=== PATIENT | female | born 1970 | race African-American/Black ===

== ENCOUNTER 2017-02-05 18:28 | Emergency (ER) | payer OTHER ==
[~2017-02-05] VITALS: Ht 165.1 cm; Wt 122.5 kg
[2017-02-05] MEDS ORDERED: PROPRANOLOL 1010 MG PO (18:30)
[2017-02-05] MEDS ORDERED: HYDROCODONE-AP1 EAC6 PO (20:22)
[2017-02-05] MEDS ORDERED: NAPROSYN500 MG PO (20:22)
[2017-02-05 20:34] VITALS: BP 151/82
== END 2017-02-05 20:35 | disposition home or self-care (01) ==
LOC: ER 18:28
DX: M25.461 Effusion, right knee (principal)

== ENCOUNTER 2018-08-19 14:02 | Emergency (ER) | payer OTHER ==
[~2018-08-19] VITALS: Ht 165.1 cm; Wt 121.6 kg
--- NOTE | ~2018-08-19 | EKG ---
[place] [address] [facility] [place] [address] ELECTROCARDIOGRAM REPORT Name: ITZEL GALLEGOALINA Tere [facility]: [id number] Admission: 08/19/18 Attend Phys: Discharge: Date of : 68 Report #: [id number] THIS REPORT FOR: //name// [facility] ED Test Date: 2018-08-19 Test Time: 14:08:39 Pat Name: ALINA GALLEGO Department: Room: Gender: F Master Printer: : 1970 Requested By: Juan Dougherty Order Number: [id number] MD: Patric Mckinnon Measurements Intervals [place] Rate: 81 P: 42 CT: 162 QRS: 13 QRSD: 86 T: 41 QT: 374 QTc: 434 Interpretive Statements Sinus rhythm No significant abnormality Compared to ECG 06/26/2005 14:09:29 No significant change was found Electronically Signed On 08-19-2018 16:41:14 CDT by Patric Mckinnon [email or web address] <ELECTRONICALLY SIGNED> By: Patric Mckinnon MD, [facility] 08/19/18 [id number] [id number] Patric Mckinnon MD, FACC /EPI
[~2018-08-19 14:02] MED LIST: HYDROCODONE-AP1 EAC6 PO; NAPROSYN500 MG PO; PROPRANOLOL 1010 MG PO
[2018-08-19 15:23] LABS: ABSOLUTE NEUTROPHILS 5.9 thou/uL (1.4-8.2); BASOPHILS 0.4 % (0.0-2.0); EOSINOPHILS 1.5 % (0.0-3.0); HEMATOCRIT 38.3 % (37.0-47.0); HEMOGLOBIN 13.1 gm/dL (12.0-15.0); MCH 27.6 pg (26.0-34.0); MCHC 34.2 g/dL (28.0-37.0); MCV 80.9 fL (80.0-100.0); MONOCYTES 8.5 % (1.0-8.0); PLATELET COUNT 343 thou/uL (150-400); POLYS 53.6 % (36.0-66.0); RBC 4.74 mil/uL (4.20-5.00); RDW 14.6 % (10.5-14.5)
[2018-08-19 15:32] LABS: ANION GAP 8 mmol/L (7-16); BUN 12 mg/dL (7-18); CALCIUM 9.4 mg/dL (8.5-10.1); CHLORIDE 102 mmol/L (98-107); CO2 27 mmol/L (21-32); GLUCOSE 104 mg/dL (74-106); POTASSIUM 3.6 mmol/L (3.5-5.1); SODIUM 137 mmol/L (136-145)
[2018-08-19 15:40] LABS: ALBUMIN 3.4 g/dL (3.4-5.0); SGOT 10 U/L (15-37); SGPT 14 U/L (30-65); TOTAL BILIRUBIN 0.2 mg/dL (<0.1-1.0); TOTAL PROTEIN 8.8 g/dL (6.4-8.2); TROPONIN-I <0.06 ng/mL (<0.06)
[2018-08-19] MEDS ORDERED: PEPCID20 MG PO (16:06)
[2018-08-19] MEDS ORDERED: NAPROSYN500 MG PO (16:06)
[2018-08-19 16:44] VITALS: BP 149/89
== END 2018-08-19 16:49 | disposition home or self-care (01) ==
LOC: ER 14:02
PROVIDERS: Emergency Medicine
DX: R07.9 Chest pain, unspecified (principal); I10 Essential (primary) hypertension; J45.909 Unspecified asthma, uncomplicated

== ENCOUNTER 2019-12-16 10:50 | Emergency (ER) | payer OTHER ==
[~2019-12-16] VITALS: Ht 165.1 cm; Wt 111.1 kg
--- NOTE | ~2019-12-16 | EKG ---
[facility] [place] [address] ELECTROCARDIOGRAM REPORT Name: ALINA KINSEY Tere Room #: REG [facility]#: [id number] Admission: 12/16/19 Attend Phys: Discharge: Date of : 68 Report #: [id number] THIS REPORT FOR: cc: Charis Morelos Diane C. DO Epiphany, Epiphany MD ~ THIS REPORT FOR: //name// [facility] ED Test Date: 2019-12-16 Test Time: 12:21:40 Pat Name: ALINA GALLEGO Department: Room: Gender: F Magazine Designer: JENNIFER : 1970 Requested By: Chip Frances Order Number: [id number] MD: Measurements Intervals [place] Rate: 81 P: 57 PA: 168 QRS: 29 QRSD: 80 T: 29 QT: 385 QTc: 447 Interpretive Statements Sinus rhythm Probable left atrial enlargement Low voltage, precordial leads Compared to ECG 08/19/2018 14:08:39 Low QRS voltage now present [email or web address] By: 1221 1221 Epiphany MD Nevin /EPI
[~2019-12-16 10:50] MED LIST changes: +PEPCID20 MG PO
[2019-12-16 12:13] LABS: ANION GAP 7 mmol/L (7-16); BUN 16 mg/dL (7-18); CALCIUM 8.8 mg/dL (8.5-10.1); CHLORIDE 104 mmol/L (98-107); CO2 29 mmol/L (21-32); CREATININE 0.8 mg/dL (0.6-1.0); GLUCOSE 100 mg/dL (74-106); POTASSIUM 3.6 mmol/L (3.5-5.1); SODIUM 140 mmol/L (136-145)
[2019-12-16 12:22] LABS: ABSOLUTE NEUTROPHILS 3.5 thou/uL (1.4-8.2); BASOPHILS 0.8 % (0.0-2.0); EOSINOPHILS 1.4 % (0.0-3.0); HEMATOCRIT 37.3 % (37.0-47.0); HEMOGLOBIN 12.2 gm/dL (12.0-15.0); LYMPHOCYTES 44.4 % (24.0-44.0); MCH 27.6 pg (26.0-34.0); MCHC 32.7 g/dL (28.0-37.0); MCV 84.3 fL (80.0-100.0); MONOCYTES 7.1 % (1.0-8.0); PLATELET COUNT 330 thou/uL (150-400); POLYS 46.3 % (36.0-66.0); RBC 4.42 mil/uL (4.20-5.00); RDW 14.7 % (10.5-14.5); WBC 7.5 thou/uL (4.0-11.0)
[2019-12-16 12:23] LABS: ALBUMIN 3.9 g/dL (3.4-5.0); LIPASE 91 U/L (73-393); SGOT 13 U/L (15-37); SGPT 18 U/L (30-65); TOTAL BILIRUBIN 0.3 mg/dL (<0.1-1.0); TROPONIN-I <0.06 ng/mL (<0.06)
[2019-12-16 12:23] LABS: URINE BILIRUBIN NEGATIVE (Negative); URINE BLOOD 1+ (Negative); URINE CLARITY CLEAR; URINE COLOR YELLOW; URINE GLUCOSE-RANDOM* NEGATIVE (Negative); URINE KETONES NEGATIVE (Negative); URINE LEUKOCYTES-REFLEX NEGATIVE (Negative); URINE NITRITE-REFLEX NEGATIVE (Negative); URINE PROTEIN (DIPSTICK) NEGATIVE (Negative); URINE SPECIFIC GRAVITY >= 1.030 (1.005-1.035); URINE UROBILINOGEN 0.2 E.U./dl (0.2-1.0)
[2019-12-16 12:51] LABS: SQUAMOUS >10 Many /LPF (0-3)
[2019-12-16 12:52] LABS: CASTS None Seen /LPF (None Seen); CRYSTALS None Seen /LPF (None Seen); URINE RBC 0-2 Rare /HPF (0-2); URINE WBC-REFLEX 0-5 Rare /HPF (0-5)
[2019-12-16 12:53] LABS: BACTERIA-REFLEX 1-9 Few /HPF (None Seen)
[2019-12-16] MEDS ORDERED: NORCO 5-325 TA1 EAC1 PO (13:47)
[2019-12-16 14:30] VITALS: BP 149/61
== END 2019-12-16 14:30 | disposition home or self-care (01) ==
LOC: ER 10:50
PROVIDERS: Emergency Medicine
DX: R10.11 Right upper quadrant pain (principal); R31.9 Hematuria, unspecified; I10 Essential (primary) hypertension; J45.909 Unspecified asthma, uncomplicated; Z98.890 Other specified postprocedural states

== ENCOUNTER 2020-08-21 11:00 | Emergency (ER) | payer OTHER ==
[~2020-08-21] VITALS: Ht 165.1 cm; Wt 117.9 kg
[~2020-08-21 11:00] MED LIST changes: +NORCO 5-325 TA1 EAC1 PO
[2020-08-21 12:00] LABS: URINE BILIRUBIN NEGATIVE (Negative); URINE BLOOD 1+ (Negative); URINE CLARITY CLEAR; URINE COLOR YELLOW; URINE GLUCOSE-RANDOM* NEGATIVE (Negative); URINE KETONES NEGATIVE (Negative); URINE LEUKOCYTES-REFLEX NEGATIVE (Negative); URINE NITRITE-REFLEX NEGATIVE (Negative); URINE PROTEIN (DIPSTICK) NEGATIVE (Negative); URINE UROBILINOGEN 0.2 E.U./dl (0.2-1.0)
[2020-08-21 12:25] LABS: CASTS None Seen /LPF (None Seen); MUCUS 4-6 Moderate strn/LPF (None Seen); SQUAMOUS >10 Many /LPF (0-3)
[2020-08-21 12:26] LABS: CRYSTALS None Seen /LPF (None Seen); URINE RBC 0-2 Rare /HPF (0-2); URINE WBC-REFLEX 0-5 Rare /HPF (0-5)
[2020-08-21 12:35] LABS: ABSOLUTE NEUTROPHILS 4.2 thou/uL (1.4-8.2); BASOPHILS 0.4 % (0.0-2.0); EOSINOPHILS 1.6 % (0.0-3.0); HEMATOCRIT 37.1 % (37.0-47.0); HEMOGLOBIN 12.1 gm/dL (12.0-15.0); LYMPHOCYTES 35.5 % (24.0-44.0); MCH 26.9 pg (26.0-34.0); MCHC 32.7 g/dL (28.0-37.0); MCV 82.4 fL (80.0-100.0); MONOCYTES 8.3 % (1.0-8.0); PLATELET COUNT 300 thou/uL (150-400); POLYS 54.2 % (36.0-66.0); RBC 4.51 mil/uL (4.20-5.00); RDW 14.6 % (10.5-14.5); WBC 7.8 thou/uL (4.0-11.0)
[2020-08-21 12:48] LABS: CREATININE 0.7 mg/dL (0.6-1.0); POTASSIUM 3.7 mmol/L (3.5-5.1)
[2020-08-21 12:55] LABS: ALBUMIN 3.5 g/dL (3.4-5.0); TOTAL BILIRUBIN 0.3 mg/dL (0.2-1.0); TOTAL PROTEIN 8.7 g/dL (6.4-8.2)
[2020-08-21] MEDS ORDERED: NAPROSYN500 MG PO (14:41)
[2020-08-21] MEDS ORDERED: NORFLEX100 MG PO (14:41)
[2020-08-21 14:48] VITALS: BP 160/50
== END 2020-08-21 14:58 | disposition home or self-care (01) ==
LOC: ER 11:00
PROVIDERS: Emergency Medicine
DX: R10.9 Unspecified abdominal pain (principal); M54.5 Low back pain; R07.81 Pleurodynia; I10 Essential (primary) hypertension; J45.909 Unspecified asthma, uncomplicated; E66.9 Obesity, unspecified; Z87.442 Personal history of urinary calculi; Z79.899 Other long term (current) drug therapy; Z68.41 Body mass index [BMI] 40.0-44.9, adult